=== PATIENT | female | born 1985 | race Two or more races ===

== ENCOUNTER 2017-10-05 19:41 | Emergency (ER) | payer SELFPAY ==
[~2017-10-05] VITALS: Ht 157.5 cm; Wt 79.2 kg
[2017-10-05 19:59] LABS: BILIRUBIN,URINE NEGATIVE (NEG); GLUCOSE,URINE NEGATIVE (NEG); NITRITE,URINE NEGATIVE (NEG); PH,URINE 6.5; PROTEIN,URINE NEGATIVE (NEG-TRACE)
[2017-10-05 20:12] LABS: BACTERIA,URINE MANY /HPF (0-FEW); SQUAMOUS EPITHELIAL CELL,UR MANY /LPF; WBC,URINE TNTC /HPF (0-4)
[2017-10-05 20:38] LABS: BASO % 0 % (0-3); EOS % 2 % (0-3); HEMATOCRIT 33.8 % (36.0-47.0); HEMOGLOBIN 10.9 g/dL (12.0-15.5); LYMPH # 0.7 x10^3/uL (1.0-4.8); LYMPH % 12 % (24-48); MEAN CORPUSCULAR HEMOGLOBIN 25 pg (25-35); MEAN CORPUSCULAR HGB CONC 32 g/dL (31-37); MEAN CORPUSCULAR VOLUME 77 fL (79-100); MONO % 6 % (0-9); NEUT % 80 % (31-73); PLATELET COUNT 263 x10^3/uL (140-400); RED BLOOD COUNT 4.38 x10^6/uL (3.50-5.40); RED CELL DISTRIBUTION WIDTH 17.1 % (11.5-14.5); WHITE BLOOD COUNT 5.8 x10^3/uL (4.0-11.0)
[2017-10-05 20:49] LABS: CREATININE 0.8 mg/dL (0.6-1.0); GFR 83.7; POTASSIUM 3.4 mmol/L (3.5-5.1)
[2017-10-05 20:55] LABS: ALBUMIN 3.4 g/dL (3.4-5.0); ALBUMIN/GLOBULIN RATIO 0.6 (1.0-1.7); TOTAL BILIRUBIN 0.2 mg/dL (0.2-1.0); TOTAL PROTEIN 9.1 g/dL (6.4-8.2)
--- NOTE | 2017-10-05 20:56 | RAD ---
Obstetric pelvic ultrasound October 05, 2017 INDICATION: Vaginal bleeding. COMPARISON: None available TECHNIQUE: Sonographic evaluation of the pelvis was performed utilizing transabdominal and transvaginal imaging. Grayscale and color Doppler was utilized. FINDINGS: The uterus measures 10.0 x 6.5 x 4.0 cm. Uterus is retroverted. Gestational sac is identified within the uterus with a crown-rump length of 1.4 cm compatible with a gestational age of 7 weeks 5 days. heart tones are identified measuring under 55 bpm. Yolk sac is seen. Crescentic hypoechoic area adjacent to the gestational sac is suggestive of a subchorionic hemorrhage. The right ovary measures 2.9 x 2.9 x 1.8 cm. Left ovary measures 3.6 x 2.2 x 2.0 cm. Ovaries are within normal limits. There is a 1.4 cm cyst in the left ovary. No free fluid is identified within the pelvis. IMPRESSION: Single intrauterine gestation is identified within a retroverted uterus with a crown-rump length compatible with a gestational age of 7 weeks and 5 days. The heart tones measure 155 bpm. There is a small to moderate sized subchorionic hemorrhage. Short-term follow-up with serial beta hCG and pelvic ultrasound is recommended. Electronically signed by: Katrina Zimmerman MD (10/05/2017 8:53 PM) [facility]
[2017-10-05 21:05] VITALS: BP 118/77
[2017-10-05] MEDS ORDERED: NITR100C62 PO (22:46)
--- NOTE | 2017-10-05 22:47 | PHYS DOC ---
Past Medical History Past Medical History: Other Additional Past Medical Histor: LUPUS Past Surgical History: No Surgical History Alcohol Use: None Drug Use: None Adult General Chief Complaint Chief Complaint: ABDOMINAL PAIN IN HPI HPI Patient is a 32 year old female presenting to the emergency department for evaluation of low abdominal pain back pain and vaginal bleeding in the setting of being early in her . She is approximately 7 weeks by her dates. She says that she is going to follow with Michael Godinez. She denies any fevers chills nausea vomiting dysuria hematuria or abnormal vaginal discharge. Review of Systems Review of Systems Constitutional: Denies fever or chills [] Respiratory: Denies cough or shortness of breath [] Cardiovascular: No additional information not addressed in HPI [] GI: + abdominal pain. No nausea, vomiting, bloody stools or diarrhea [] : Denies dysuria or hematuria [] Musculoskeletal: + back pain. No joint pain [] Integument: Denies rash or skin lesions [] Neurologic: Denies headache, focal weakness or sensory changes [] All other systems were reviewed and found to be within normal limits, except as documented in this note. Current Medications Current Medications Current Medications Medications (Trade) Dose Ordered Sig/Meera Start Time Stop Time Status Last Admin Dose Admin Ceftriaxone Sodium 50 ml @ 100 mls/hr 1X ONCE 10/05/17 20:45 10/05/17 21:14 DC 10/05/17 21:03 100 MLS/HR Allergies Allergies Allergies Coded Allergies Type Severity Reaction Last Updated Verified No Known Drug Allergies 10/05/17 No Physical Exam Physical Exam Constitutional: Well developed, well nourished, no acute distress, non-toxic appearance. [] Cardiovascular:Heart rate regular rhythm, no murmur [] Lungs & Thorax: Bilateral breath sounds clear to auscultation [] Abdomen: Bowel sounds normal, soft, no tenderness, no masses, no pulsatile masses. [] [employer] exam deferred at patient's request. Back: Mild lumbar paraspinal tenderness, no CVA tenderness. [] Extremities: No tenderness, no cyanosis, no clubbing, ROM intact, no edema. [] Neurologic: Alert and oriented X 3, normal motor function, normal sensory function, no focal deficits noted. [] Current Patient Data Vital Signs Vital Signs Date Time Temp Pulse Resp B/P (MAP) Pulse Ox O2 Delivery O2 Flow Rate FiO2 10/05/17 21:05 97 20 118/77 (91) 100 10/05/17 19:50 98.3 Room Air 98.3 Lab Values Laboratory Tests Test 10/05/17 19:47 10/05/17 19:54 10/05/17 20:25 Urine Collection Type Unknown Urine Color Yellow Urine Clarity Cloudy Urine pH 6.5 Urine Specific [employer] 1.020 Urine Protein Negative mg/dL (NEG-TRACE) Urine Glucose (UA) Negative mg/dL (NEG) Urine Ketones (Stick) Negative mg/dL (NEG) Urine Blood Moderate (NEG) Urine Nitrite Negative (NEG) Urine Bilirubin Negative (NEG) Urine Urobilinogen Dipstick 1.0 mg/dL (0.2 mg/dL) Urine Leukocyte Esterase Large (NEG) Urine RBC 6-10 /HPF (0-2) Urine WBC Tntc /HPF (0-4) Urine Squamous Epithelial Cells Many /LPF Urine Bacteria Many /HPF (0-FEW) POC Urine HCG, Qualitative Hcg positive (Negative) White Blood Count 5.8 x10^3/uL (4.0-11.0) Red Blood Count 4.38 x10^6/uL (3.50-5.40) Hemoglobin 10.9 g/dL (12.0-15.5) L Hematocrit 33.8 % (36.0-47.0) L Mean Corpuscular Volume 77 fL (79-100) L Mean Corpuscular Hemoglobin 25 pg (25-35) Mean Corpuscular Hemoglobin Concent 32 g/dL (31-37) Red Cell Distribution Width 17.1 % (11.5-14.5) H Platelet Count 263 x10^3/uL (140-400) Neutrophils (%) (Auto) 80 % (31-73) H Lymphocytes (%) (Auto) 12 % (24-48) L Monocytes (%) (Auto) 6 % (0-9) Eosinophils (%) (Auto) 2 % (0-3) Basophils (%) (Auto) 0 % (0-3) Neutrophils # (Auto) 4.6 x10^3uL (1.8-7.7) Lymphocytes # (Auto) 0.7 x10^3/uL (1.0-4.8) L Monocytes # (Auto) 0.4 x10^3/uL (0.0-1.1) Eosinophils # (Auto) 0.1 x10^3/uL (0.0-0.7) Basophils # (Auto) 0.0 x10^3/uL (0.0-0.2) Maternal Serum HCG Beta Subunit 31874 mIU/mL (0-5) H Sodium Level 138 mmol/L (136-145) Potassium Level 3.4 mmol/L (3.5-5.1) L Chloride Level 101 mmol/L (98-107) Carbon Dioxide Level 26 mmol/L (21-32) Anion Gap 11 (6-14) Blood Urea Nitrogen 10 mg/dL (7-20) Creatinine 0.8 mg/dL (0.6-1.0) Estimated GFR (Cockcroft-Gault) 83.7 BUN/Creatinine Ratio 13 (6-20) Glucose Level 91 mg/dL (70-99) Calcium Level 9.0 mg/dL (8.5-10.1) Total Bilirubin 0.2 mg/dL (0.2-1.0) Aspartate Amino Transferase (AST) 19 U/L (15-37) Alanine Aminotransferase (ALT) 18 U/L (14-59) Alkaline Phosphatase 120 U/L (46-116) H Total Protein 9.1 g/dL (6.4-8.2) H Albumin 3.4 g/dL (3.4-5.0) Albumin/Globulin Ratio 0.6 (1.0-1.7) L Laboratory Tests 10/05/17 20:25 Laboratory Tests 10/05/17 20:25 EKG EKG [] Radiology/Procedures Radiology/Procedures Obstetric pelvic ultrasound October 05, 2017 INDICATION: Vaginal bleeding. COMPARISON: None available TECHNIQUE: Sonographic evaluation of the pelvis was performed utilizing transabdominal and transvaginal imaging. Grayscale and color Doppler was utilized. FINDINGS: The uterus measures 10.0 x 6.5 x 4.0 cm. Uterus is retroverted. Gestational sac is identified within the uterus with a crown-rump length of 1.4 cm compatible with a gestational age of 7 weeks 5 days. heart tones are identified measuring under 55 bpm. Yolk sac is seen. Crescentic hypoechoic area adjacent to the gestational sac is suggestive of a subchorionic hemorrhage. The right ovary measures 2.9 x 2.9 x 1.8 cm. Left ovary measures 3.6 x 2.2 x 2.0 cm. Ovaries are within normal limits. There is a 1.4 cm cyst in the left ovary. No free fluid is identified within the pelvis. IMPRESSION: Single intrauterine gestation is identified within a retroverted uterus with a crown-rump length compatible with a gestational age of 7 weeks and 5 days. The heart tones measure 155 bpm. There is a small to moderate sized subchorionic hemorrhage. Short-term follow-up with serial beta hCG and pelvic ultrasound is recommended. Electronically signed by: Jose Angel Zimmerman MD (10/05/2017 8:53 PM) [facility] DICTATED and SIGNED BY: JOSE ANGEL ZIMMERMAN MD DATE: 10/05/172045 Course & Med Decision Making Course & Med Decision Making Patient presenting to the emergency department for evaluation of vaginal bleeding in the setting of early . Ultrasound showed no acute findings except for the subchorionic hemorrhage which was explained to the patient and she was told she needs to practice pelvic rest and follow with an OB within the next 2 days. She may have a urinary tract infection as well so she was given Rocephin here and will start on Macrobid and told to drink plenty of fluids. Patient aware and agreeable with plan for discharge and verbalized understanding of the need for short-term follow-up and strict ED return precautions discussed worsening pain bleeding or other general concerns. Dragon Disclaimer Dragon Disclaimer This electronic medical record was generated, in whole or in part, using a voice recognition dictation system. Departure Departure Impression: Primary Impression: Threatened Additional Impression: UTI (urinary tract infection) Disposition: 01 HOME, SELF-CARE Condition: STABLE Referrals: UNKNOWN PCP NAME (PCP) Patient Instructions: Threatened Miscarriage Scripts Nitrofurantoin Monohyd/M-Cryst (MACROBID 100 MG CAPSULE) 100 Mg Capsule 1 CAP PO BID, #14 CAP Prov: TREVON MONTALVO DO 10/05/17 Problem Qualifiers TREVON MONTALVO DO Oct 05, 2017 22:46
== END 2017-10-05 23:21 | disposition home or self-care (01) ==
LOC: ER 19:41
DX: O20.0 Threatened abortion (principal); O23.41 Unspecified infection of urinary tract in pregnancy, first trimester; M32.9 Systemic lupus erythematosus, unspecified; Z3A.01 Less than 8 weeks gestation of pregnancy
CPT/HCPCS: 36415; 76801; 76817; 80053; 81001; 81025; 84702; 85025; 86850; 86900; 86901; 87086; 96365; 99285; J0690